=== PATIENT | female | born 1970 | race Caucasian/White ===

== ENCOUNTER → 2023-07-21 11:36 | Outpatient (REF) | payer OTHER, SELFPAY | LOC: RAD 11:36 | PROVIDERS: ATTENDING PHYSICIAN Internal Medicine | DX: M25.552 Pain in left hip (principal) | CPT/HCPCS: 73502 ==

== ENCOUNTER 2023-07-31 18:47 | Outpatient (RCR) | payer OTHER, SELFPAY | END 2023-07-31 23:59 | disposition home or self-care (01) | LOC: RPT 18:47 | PROVIDERS: ATTENDING PHYSICIAN Internal Medicine | DX: M25.552 Pain in left hip (principal); Z73.6 Limitation of activities due to disability | CPT/HCPCS: 97010; 97110; 97140; 97161; 97530 ==

== ENCOUNTER → 2023-08-09 09:53 | Outpatient (REF) | payer OTHER, SELFPAY ==
[2023-08-09 15:26] LABS: TSH Reflex To Free T4 6.01 uIU/ml (0.47-4.68)
[2023-08-09 16:01] LABS: Free T4 1.23 ng/dl (0.78-2.19)
== END ==
LOC: WDC 09:53
PROVIDERS: ATTENDING PHYSICIAN Surgery; FAMILY PHYSICIAN Internal Medicine
DX: N63.10 Unspecified lump in the right breast, unspecified quadrant (principal); E03.9 Hypothyroidism, unspecified; N63.14 Unspecified lump in the right breast, lower inner quadrant
CPT/HCPCS: 36415; 76642; 84439; 84443

== ENCOUNTER 2023-08-31 09:53 | Outpatient (RCR) | payer OTHER, SELFPAY | END 2023-08-31 23:59 | disposition home or self-care (01) | LOC: RPT 09:53 | PROVIDERS: ATTENDING PHYSICIAN Internal Medicine | DX: M25.552 Pain in left hip (principal); Z73.6 Limitation of activities due to disability | CPT/HCPCS: 97010; 97110; 97112; 97140 ==

== ENCOUNTER 2023-09-06 14:05 | Outpatient (RCR) | payer OTHER, SELFPAY | END 2023-09-07 07:37 | disposition home or self-care (01) | LOC: RPT 14:05 | PROVIDERS: ATTENDING PHYSICIAN Internal Medicine | DX: M25.552 Pain in left hip (principal); Z73.6 Limitation of activities due to disability | CPT/HCPCS: 97110; 97112 ==

== ENCOUNTER → 2023-09-21 17:16 | Outpatient (REF) | payer OTHER, SELFPAY ==
[2023-09-21 17:36] LABS: % Basophils 0.8 % (0-2); % Eosinophils 1.8 % (0-6); % Immature Granulocytes 0.3 % (0-0.5); % Lymphocytes 28.7 % (20.5-51.1); % Monocytes 10.7 % (1.7-9.3); % Neutrophils 57.7 % (42.2-75.2); Absolute Basophils 0.1 10^3/uL (0-0.2); Absolute Eosinophils 0.1 10^3/uL (0-0.7); Absolute Lymphocytes 1.7 10^3/uL (1.2-3.4); Absolute Monocytes 0.6 10^3/uL (0.1-0.6); Absolute Neutrophils 3.5 10^3/uL (1.4-6.5); Hematocrit 41.5 % (37.0-47.0); Hemoglobin 14.1 g/dL (12.0-16.0); Mean Corpuscular Hgb 32.9 pg (27.0-31.0); Mean Corpuscular Volume 96.7 fL (81.0-99.0); Mean Platelet Volume 9.6 fL (7.4-10.4); Nucleated Red Blood Cells % 0 %; Platelet Count 260 10^3/uL (130-400); Red Blood Cell Count 4.29 10^6/uL (4.20-5.40); Red Cell Dist. Width 13.5 % (11.5-14.5)
== END ==
LOC: REG 17:16
PROVIDERS: ATTENDING PHYSICIAN Specialist; FAMILY PHYSICIAN Internal Medicine
DX: Z01.812 Encounter for preprocedural laboratory examination (principal)
CPT/HCPCS: 36415; 85025

== ENCOUNTER → 2023-10-03 07:30 | Outpatient (REF) | payer OTHER, SELFPAY | LOC: CLAB 07:30 | PROVIDERS: ATTENDING PHYSICIAN Specialist | DX: N62 Hypertrophy of breast (principal) | CPT/HCPCS: 88305 ==

== ENCOUNTER → 2023-10-12 15:31 | Outpatient (REF) | payer OTHER, SELFPAY ==
[2023-10-12 17:33] LABS: TSH Reflex To Free T4 1.13 uIU/ml (0.47-4.68)
== END ==
LOC: REG 15:31
PROVIDERS: ATTENDING PHYSICIAN Internal Medicine
DX: E03.9 Hypothyroidism, unspecified (principal)
CPT/HCPCS: 36415; 84443

== ENCOUNTER → 2023-12-12 06:22 | Outpatient (REF) | payer OTHER, SELFPAY ==
[2023-12-12 07:23] LABS: % Basophils 0.6 % (0-2); % Eosinophils 2.3 % (0-6); % Immature Granulocytes 0.2 % (0-0.5); % Lymphocytes 43.3 % (20.5-51.1); % Neutrophils 44.6 % (42.2-75.2); Absolute Eosinophils 0.1 10^3/uL (0-0.7); Absolute Lymphocytes 2.1 10^3/uL (1.2-3.4); Absolute Monocytes 0.4 10^3/uL (0.1-0.6); Absolute Neutrophils 2.1 10^3/uL (1.4-6.5); Hematocrit 42.5 % (37.0-47.0); Hemoglobin 14.5 g/dL (12.0-16.0); Mean Corp Hgb Conc. 34.1 g/dL (33.0-37.0); Mean Corpuscular Hgb 32.8 pg (27.0-31.0); Mean Corpuscular Volume 96.2 fL (81.0-99.0); Mean Platelet Volume 9.9 fL (7.4-10.4); Nucleated Red Blood Cells % 0 %; Platelet Count 182 10^3/uL (130-400); Red Blood Cell Count 4.42 10^6/uL (4.20-5.40); Red Cell Dist. Width 12.2 % (11.5-14.5); White Blood Cell Count 4.8 10^3/uL (4.8-10.8)
[2023-12-12 07:51] LABS: ALT (SGPT) 20 U/L (0-35); AST (SGOT) 24 U/L (14-36); Albumin 4.3 g/dl (3.5-5.0); Alkaline Phosphatase 64 U/L (38-126); Blood Urea Nitrogen 29 mg/dl (7-17); Calcium 10.2 mg/dl (8.4-10.2); Carbon Dioxide 28 mmol/L (22-30); Chloride 106 mmol/L (98-107); Glucose 89 mg/dl (70-99); HDL Cholesterol 59 mg/dl; LDL Cholesterol, Calculated 170 mg/dl; Potassium 4.3 mmol/L (3.5-5.1); Sodium 140 mmol/L (135-145); Total Bilirubin 0.5 mg/dl (0.2-1.3); Total Cholesterol 244 mg/dl (50-199); Total Protein 6.7 g/dl (6.3-8.2); Triglyceride 78 mg/dl (10-149); Very Low Density Lipoprotein 15 mg/dl (0-30); eGFR > 60.00
[2023-12-12 11:12] LABS: Glycohemoglobin (HgbA1c) 5.2 % (4.0-5.6)
== END ==
LOC: REG 06:22
PROVIDERS: ATTENDING PHYSICIAN Physician Assistant; FAMILY PHYSICIAN Internal Medicine
DX: R73.03 Prediabetes (principal); E78.00 Pure hypercholesterolemia, unspecified; E03.9 Hypothyroidism, unspecified; R53.83 Other fatigue; E66.3 Overweight
CPT/HCPCS: 36415; 80053; 80061; 83036; 84439; 84443; 85025

== ENCOUNTER → 2024-01-10 16:32 | Outpatient (REF) | payer OTHER, SELFPAY | LOC: MRI 3T 16:32 | PROVIDERS: ATTENDING PHYSICIAN Surgery; FAMILY PHYSICIAN Internal Medicine | DX: N60.99 Unspecified benign mammary dysplasia of unspecified breast (principal) | CPT/HCPCS: 77049; A9585 ==

== ENCOUNTER → 2024-01-17 14:46 | Outpatient (REF) | payer OTHER, SELFPAY | LOC: WDC 14:46 | PROVIDERS: ATTENDING PHYSICIAN Surgery; FAMILY PHYSICIAN Internal Medicine | DX: R92.8 Other abnormal and inconclusive findings on diagnostic imaging of breast (principal) | CPT/HCPCS: 76642 ==

== ENCOUNTER → 2024-02-08 15:05 | Outpatient (REF) | payer OTHER, SELFPAY ==
[2024-02-08 17:04] LABS: Free T3 2.84 pg/ml (2.77-5.27); Free T4 1.16 ng/dl (0.78-2.19)
[2024-02-08 17:18] LABS: TSH 1.57 uIU/ml (0.47-4.68)
== END ==
LOC: REG 15:05
PROVIDERS: ATTENDING PHYSICIAN Internal Medicine
DX: E03.9 Hypothyroidism, unspecified (principal)
CPT/HCPCS: 36415; 84439; 84443; 84481

== ENCOUNTER → 2024-04-16 15:24 | Outpatient (REF) | payer OTHER, SELFPAY ==
[2024-04-16 17:25] LABS: TSH Reflex To Free T4 1.52 uIU/ml (0.47-4.68)
== END ==
LOC: REG 15:24
PROVIDERS: ATTENDING PHYSICIAN Internal Medicine
DX: E03.9 Hypothyroidism, unspecified (principal)
CPT/HCPCS: 36415; 84443

== ENCOUNTER → 2024-06-13 15:54 | Outpatient (REF) | payer OTHER, SELFPAY ==
[2024-06-13 17:55] LABS: TSH Reflex To Free T4 3.44 uIU/ml (0.47-4.68)
== END ==
LOC: REG 15:54
PROVIDERS: ATTENDING PHYSICIAN Internal Medicine
DX: E03.9 Hypothyroidism, unspecified (principal)
CPT/HCPCS: 36415; 84443

== ENCOUNTER → 2024-07-22 06:24 | Outpatient (REF) | payer OTHER, SELFPAY ==
[2024-07-22 07:46] LABS: % Basophils 1.4 % (0-2); % Eosinophils 10.1 % (0-6); % Immature Granulocytes 0.2 % (0-0.5); % Lymphocytes 30.8 % (20.5-51.1); % Monocytes 7.7 % (1.7-9.3); % Neutrophils 49.8 % (42.2-75.2); Absolute Basophils 0.1 10^3/uL (0-0.2); Absolute Eosinophils 0.5 10^3/uL (0-0.7); Absolute Lymphocytes 1.6 10^3/uL (1.2-3.4); Absolute Monocytes 0.4 10^3/uL (0.1-0.6); Absolute Neutrophils 2.5 10^3/uL (1.4-6.5); Hemoglobin 12.9 g/dL (12.0-16.0); Mean Corp Hgb Conc. 32.3 g/dL (33.0-37.0); Mean Corpuscular Hgb 32.6 pg (27.0-31.0); Mean Platelet Volume 9.6 fL (7.4-10.4); Nucleated Red Blood Cells % 0 %; Platelet Count 285 10^3/uL (130-400); Red Blood Cell Count 3.96 10^6/uL (4.20-5.40); Red Cell Dist. Width 14.1 % (11.5-14.5); White Blood Cell Count 5.1 10^3/uL (4.8-10.8)
[2024-07-22 08:04] LABS: ALT (SGPT) 19 U/L (0-35); AST (SGOT) 24 U/L (14-36); Alkaline Phosphatase 73 U/L (38-126); Blood Urea Nitrogen 26 mg/dl (7-17); Calcium 9.8 mg/dl (8.4-10.2); Carbon Dioxide 28 mmol/L (22-30); Chloride 106 mmol/L (98-107); Glucose 90 mg/dl (70-99); HDL Cholesterol 60 mg/dl; LDL Cholesterol, Calculated 150 mg/dl; Potassium 4.5 mmol/L (3.5-5.1); Sodium 140 mmol/L (135-145); Total Bilirubin 0.4 mg/dl (0.2-1.3); Total Cholesterol 225 mg/dl (50-199); Total Protein 6.4 g/dl (6.3-8.2); Triglyceride 75 mg/dl (10-149); Very Low Density Lipoprotein 15 mg/dl (0-30); eGFR > 60.00
[2024-07-22 08:58] LABS: Free T4 0.95 ng/dl (0.78-2.19)
== END ==
LOC: REG 06:24
PROVIDERS: ATTENDING PHYSICIAN Internal Medicine
DX: Z00.00 Encounter for general adult medical examination without abnormal findings (principal)
CPT/HCPCS: 36415; 80053; 80061; 84439; 84443; 85025

== ENCOUNTER 2024-08-02 08:55 | Outpatient (RCR) | payer OTHER, SELFPAY | END 2024-08-02 23:59 | disposition home or self-care (01) | LOC: RPT 08:55 | PROVIDERS: ATTENDING PHYSICIAN Nurse Practitioner; FAMILY PHYSICIAN Internal Medicine | DX: D05.00 Lobular carcinoma in situ of unspecified breast (principal); L90.5 Scar conditions and fibrosis of skin; Z73.6 Limitation of activities due to disability; M62.81 Muscle weakness (generalized); Z91.89 Other specified personal risk factors, not elsewhere classified; Z90.13 Acquired absence of bilateral breasts and nipples; Z98.890 Other specified postprocedural states | CPT/HCPCS: 97110; 97112; 97140; 97162; 97530 ==

== ENCOUNTER → 2024-08-19 10:14 | Outpatient (REF) | payer OTHER, SELFPAY | LOC: RAD 10:14 | PROVIDERS: ATTENDING PHYSICIAN Internal Medicine | DX: R10.9 Unspecified abdominal pain (principal) | CPT/HCPCS: 76830; 76856 ==

== ENCOUNTER 2024-09-02 09:02 | Outpatient (RCR) | payer OTHER, SELFPAY | END 2024-09-02 23:59 | disposition home or self-care (01) | LOC: RPT 09:02 | PROVIDERS: ATTENDING PHYSICIAN Nurse Practitioner; FAMILY PHYSICIAN Internal Medicine | DX: D05.00 Lobular carcinoma in situ of unspecified breast (principal); L90.5 Scar conditions and fibrosis of skin; Z73.6 Limitation of activities due to disability; M62.81 Muscle weakness (generalized); Z98.890 Other specified postprocedural states; Z91.89 Other specified personal risk factors, not elsewhere classified; Z90.13 Acquired absence of bilateral breasts and nipples | CPT/HCPCS: 97110; 97112; 97140; 97530 ==

== ENCOUNTER → 2024-09-12 06:32 | Outpatient (REF) | payer OTHER, SELFPAY ==
[2024-09-12 07:35] LABS: % Basophils 1.1 % (0-2); % Eosinophils 3.2 % (0-6); % Immature Granulocytes 0.2 % (0-0.5); % Lymphocytes 34.6 % (20.5-51.1); % Monocytes 8.7 % (1.7-9.3); % Neutrophils 52.2 % (42.2-75.2); Absolute Basophils 0.1 10^3/uL (0-0.2); Absolute Eosinophils 0.2 10^3/uL (0-0.7); Absolute Lymphocytes 1.8 10^3/uL (1.2-3.4); Absolute Monocytes 0.5 10^3/uL (0.1-0.6); Absolute Neutrophils 2.7 10^3/uL (1.4-6.5); Hematocrit 46.6 % (37.0-47.0); Hemoglobin 15.6 g/dL (12.0-16.0); Mean Corp Hgb Conc. 33.5 g/dL (33.0-37.0); Mean Corpuscular Hgb 32.6 pg (27.0-31.0); Mean Corpuscular Volume 97.3 fL (81.0-99.0); Mean Platelet Volume 9.8 fL (7.4-10.4); Nucleated Red Blood Cells % 0 %; Platelet Count 239 10^3/uL (130-400); Red Blood Cell Count 4.79 10^6/uL (4.20-5.40); Red Cell Dist. Width 11.9 % (11.5-14.5); White Blood Cell Count 5.3 10^3/uL (4.8-10.8)
[2024-09-12 08:31] LABS: ALT (SGPT) 20 U/L (0-35); AST (SGOT) 23 U/L (14-36); Albumin 4.3 g/dl (3.5-5.0); Alkaline Phosphatase 68 U/L (38-126); Blood Urea Nitrogen 31 mg/dl (7-17); Calcium 10.5 mg/dl (8.4-10.2); Carbon Dioxide 27 mmol/L (22-30); Chloride 107 mmol/L (98-107); Free T4 1.28 ng/dl (0.78-2.19); Glucose 92 mg/dl (70-99); Potassium 4.4 mmol/L (3.5-5.1); Sodium 143 mmol/L (135-145); Total Bilirubin 0.6 mg/dl (0.2-1.3); Total Protein 6.9 g/dl (6.3-8.2); eGFR > 60.00
[2024-09-12 08:44] LABS: TSH 1.61 uIU/ml (0.47-4.68)
[2024-09-12 09:02] LABS: Glycohemoglobin (HgbA1c) 5.1 % (4.0-5.6)
[2024-09-13 23:41] LABS: Insulin, Random 9 uIU/mL
== END ==
LOC: REG 06:32
PROVIDERS: ATTENDING PHYSICIAN Nurse Practitioner Family; FAMILY PHYSICIAN Internal Medicine
DX: R73.03 Prediabetes (principal); E78.00 Pure hypercholesterolemia, unspecified; E03.9 Hypothyroidism, unspecified; R53.83 Other fatigue
CPT/HCPCS: 36415; 80053; 83036; 83525; 84439; 84443; 85025

== ENCOUNTER 2024-09-25 08:59 | Outpatient (RCR) | payer OTHER, SELFPAY | END 2024-09-25 23:59 | disposition home or self-care (01) | LOC: RPT 08:59 | PROVIDERS: ATTENDING PHYSICIAN Nurse Practitioner; FAMILY PHYSICIAN Internal Medicine | DX: L90.5 Scar conditions and fibrosis of skin (principal); M62.81 Muscle weakness (generalized); Z91.89 Other specified personal risk factors, not elsewhere classified; Z73.6 Limitation of activities due to disability; Z98.890 Other specified postprocedural states; Z90.13 Acquired absence of bilateral breasts and nipples; D05.00 Lobular carcinoma in situ of unspecified breast | CPT/HCPCS: 97110; 97112; 97140 ==

== ENCOUNTER → 2024-10-02 08:40 | Outpatient (REF) | payer OTHER, SELFPAY | LOC: RAD 08:40 | PROVIDERS: ATTENDING PHYSICIAN Plastic Surgery; FAMILY PHYSICIAN Internal Medicine | DX: Z98.890 Other specified postprocedural states (principal) | CPT/HCPCS: 76705 ==

== ENCOUNTER 2024-10-09 06:45 | Outpatient (RCR) | payer OTHER, SELFPAY | END 2024-10-09 23:59 | disposition home or self-care (01) | LOC: RPT 06:45 | PROVIDERS: ATTENDING PHYSICIAN Nurse Practitioner; FAMILY PHYSICIAN Internal Medicine | DX: L90.5 Scar conditions and fibrosis of skin (principal); M62.81 Muscle weakness (generalized); D05.00 Lobular carcinoma in situ of unspecified breast; Z91.89 Other specified personal risk factors, not elsewhere classified; Z73.6 Limitation of activities due to disability; Z98.890 Other specified postprocedural states; Z90.13 Acquired absence of bilateral breasts and nipples | CPT/HCPCS: 97110; 97140; 97530 ==

== ENCOUNTER 2024-10-23 18:48 | Outpatient (RCR) | payer OTHER, SELFPAY | END 2024-10-23 23:59 | disposition home or self-care (01) | LOC: RPT 18:48 | PROVIDERS: ATTENDING PHYSICIAN Physician Assistant Medical; FAMILY PHYSICIAN Internal Medicine | DX: M76.892 Other specified enthesopathies of left lower limb, excluding foot (principal); M54.16 Radiculopathy, lumbar region; Z73.6 Limitation of activities due to disability; M25.552 Pain in left hip | CPT/HCPCS: 97110; 97112; 97140; 97161 ==

== ENCOUNTER 2024-12-02 13:41 | Outpatient (RCR) | payer OTHER, SELFPAY | END 2024-12-02 23:59 | disposition home or self-care (01) | LOC: RPT 13:41 | PROVIDERS: ATTENDING PHYSICIAN Physician Assistant Medical; FAMILY PHYSICIAN Internal Medicine | DX: M76.892 Other specified enthesopathies of left lower limb, excluding foot (principal); M54.16 Radiculopathy, lumbar region; Z73.6 Limitation of activities due to disability; M25.552 Pain in left hip | CPT/HCPCS: 97110; 97112; 97140; 97530 ==

== ENCOUNTER 2024-12-16 13:02 | Outpatient (RCR) | payer OTHER, SELFPAY | END 2024-12-16 23:59 | disposition home or self-care (01) | LOC: RPT 13:02 | PROVIDERS: ATTENDING PHYSICIAN Physician Assistant Medical; FAMILY PHYSICIAN Internal Medicine | DX: M76.892 Other specified enthesopathies of left lower limb, excluding foot (principal); M54.16 Radiculopathy, lumbar region; Z73.6 Limitation of activities due to disability; M25.552 Pain in left hip | CPT/HCPCS: 97112; 97140; 97530 ==

== ENCOUNTER → 2024-12-20 06:22 | Outpatient (REF) | payer OTHER, SELFPAY ==
[2024-12-20 07:32] LABS: Hematocrit 46.2 % (37.0-47.0); Hemoglobin 14.9 g/dL (12.0-16.0); Mean Corp Hgb Conc. 32.3 g/dL (33.0-37.0); Mean Corpuscular Volume 97.1 fL (81.0-99.0); Nucleated Red Blood Cells % 0 %; Platelet Count 202 10^3/uL (130-400); Red Cell Dist. Width 13.5 % (11.5-14.5)
[2024-12-20 07:55] LABS: ALT (SGPT) 19 U/L (0-35); AST (SGOT) 20 U/L (14-36); Albumin 4.5 g/dl (3.5-5.0); Alkaline Phosphatase 57 U/L (38-126); Blood Urea Nitrogen 24 mg/dl (7-17); Calcium 10.4 mg/dl (8.4-10.2); Carbon Dioxide 27 mmol/L (22-30); Chloride 110 mmol/L (98-107); Glucose 99 mg/dl (70-99); HDL Cholesterol 59 mg/dl; LDL Cholesterol, Calculated 146 mg/dl; Potassium 4.7 mmol/L (3.5-5.1); Sodium 141 mmol/L (135-145); Total Protein 7.0 g/dl (6.3-8.2); Very Low Density Lipoprotein 17 mg/dl (0-30); eGFR > 60.00
[2024-12-20 08:17] LABS: TSH 1.89 uIU/ml (0.47-4.68)
[2024-12-20 11:46] LABS: Glycohemoglobin (HgbA1c) 5.4 % (4.0-5.6)
== END ==
LOC: REG 06:22
PROVIDERS: ATTENDING PHYSICIAN Nurse Practitioner Family; FAMILY PHYSICIAN Internal Medicine
DX: R73.03 Prediabetes (principal); E78.00 Pure hypercholesterolemia, unspecified; E03.9 Hypothyroidism, unspecified; R53.83 Other fatigue
CPT/HCPCS: 36415; 80053; 80061; 83036; 83525; 84439; 84443; 85025

== ENCOUNTER → 2024-12-26 12:27 | Outpatient (REF) | payer OTHER, SELFPAY ==
[2024-12-26 12:48] VITALS: BP 129/85; BP_SYST 84
[2024-12-26 13:56] VITALS: BP 145/82; BP_SYST 79
== END ==
LOC: RADI 12:27
PROVIDERS: ATTENDING PHYSICIAN Physician Assistant Medical; FAMILY PHYSICIAN Internal Medicine
DX: M76.892 Other specified enthesopathies of left lower limb, excluding foot (principal); M25.552 Pain in left hip
CPT/HCPCS: 20610; 77012

== ENCOUNTER 2025-01-29 13:59 | Outpatient (RCR) | payer OTHER, SELFPAY | END 2025-01-29 23:59 | disposition home or self-care (01) | LOC: RPT 13:59 | PROVIDERS: ATTENDING PHYSICIAN Physician Assistant Medical; FAMILY PHYSICIAN Internal Medicine | DX: M76.892 Other specified enthesopathies of left lower limb, excluding foot (principal); M54.16 Radiculopathy, lumbar region; Z73.6 Limitation of activities due to disability; M25.552 Pain in left hip | CPT/HCPCS: 97110; 97112; 97140; 97530 ==

== ENCOUNTER 2025-02-24 06:20 | Outpatient (RCR) | payer OTHER, SELFPAY | END 2025-02-24 14:34 | disposition home or self-care (01) | LOC: RPT 06:20 | PROVIDERS: ATTENDING PHYSICIAN Physician Assistant Medical; FAMILY PHYSICIAN Internal Medicine | DX: M76.892 Other specified enthesopathies of left lower limb, excluding foot (principal); M54.16 Radiculopathy, lumbar region; Z73.6 Limitation of activities due to disability; M25.552 Pain in left hip | CPT/HCPCS: 97112; 97530 ==

== ENCOUNTER → 2025-05-26 12:25 | Outpatient (REF) | payer OTHER, SELFPAY | LOC: REG 12:25 | PROVIDERS: ATTENDING PHYSICIAN Internal Medicine | DX: E03.9 Hypothyroidism, unspecified (principal) | CPT/HCPCS: 36415; 84443 ==